=== PATIENT | female | born 1955 | race Caucasian/White ===

== ENCOUNTER 2019-04-08 05:58 | Day surgery (SDC) | payer OTHER ==
[~2019-04-08 05:58] MED LIST: ACYCLOVIR PO; CLONAZEPAM0.5 MG; GAS RELIEF125 M1 PO; HYZAAR 100-251 UDTAB PO; INTESTINEX680 MG PO; LIPITOR40 MG; MOTRIN50 MG/1.25 PO; PERCOCET 5/3251 TAB PO; PROTONIX20 MG; [UNRECOGNIZED DRUG - OTHER] PO
== END 2019-04-08 09:45 | disposition home or self-care (01) ==
LOC: AMB-ENDOS 05:58
DX: K57.32 Diverticulitis of large intestine without perforation or abscess without bleeding (principal); Z12.11 Encounter for screening for malignant neoplasm of colon